=== PATIENT | female | born 1975 | race Caucasian/White ===

== ENCOUNTER 2018-02-07 05:47 | Observation (INO) | payer SELFPAY ==
[2018-01-31 14:56] LABS: BASOPHILS # (AUTO) 0.1 (0.0-0.1); BASOPHILS % 0.7 % (0.0-1.0); EOSINOPHILS # (AUTO) 0.2 (0.0-0.4); HEMATOCRIT 42.1 % (34.2-44.1); HEMOGLOBIN 13.8 g/dL (12.0-16.0); LYMPHOCYTES # (AUTO) 2.8 (1.0-3.2); LYMPHOCYTES % 34.4 % (18.0-39.1); MEAN CORPUSCULAR HEMOGLOBIN 30.4 pg (28-32); MEAN CORPUSCULAR HGB CONC 32.8 g/dL (31-35); MEAN CORPUSCULAR VOLUME 92.7 fL (81-99); MONOCYTES # (AUTO) 0.5 (0.2-0.8); MONOCYTES % 5.8 % (4.4-11.3); NEUTROPHILS # (AUTO) 4.6 (2.1-6.9); PLATELET COUNT 376 x10e3/uL (140-360); RED BLOOD COUNT 4.54 x10e6/uL (3.6-5.1); RED CELL DISTRIBUTION WIDTH 13.2 % (11.7-14.4)
[2018-01-31 15:10] LABS: ANION GAP 12.2 mmol/L (8-16); BLOOD UREA NITROGEN 10 mg/dL (7-26); BUN/CREATININE RATIO 11 (6-25); CALCIUM 9.7 mg/dL (8.4-10.2); CARBON DIOXIDE 28 mmol/L (22-29); CHLORIDE 106 mmol/L (98-107); CREATININE, SERUM 0.92 mg/dL (0.57-1.11); EST GLOMERULAR FILTRATION RATE > 60 ML/MIN (60-); GLUCOSE 105 mg/dL (74-118); POTASSIUM 4.2 mmol/L (3.5-5.1); SODIUM 142 mmol/L (136-145)
--- NOTE | 2018-01-31 15:10 | Diagnostic Imaging Report ---
PROCEDURE: Frontal and lateral views of the chest. COMPARISON: None. INDICATIONS: PREOPERATIVE CHEST XRAY FOR TUMMY TUCK SURGERY FINDINGS: Lines/tubes: None. Lungs: The lungs are well inflated and clear. There is no evidence of pneumonia or pulmonary edema. Pleura: There is no pleural effusion or pneumothorax. Heart and mediastinum: The heart and the mediastinum are normal. Bones: No acute bony abnormality. IMPRESSION: No acute cardiopulmonary disease. Dictated by: Jesus Up M.D. on 01/31/2018 at 15:10 Electronically approved by: Jesus Up M.D. on 01/31/2018 at 15:10
[~2018-02-07] VITALS: Ht 162.6 cm; Wt 108.0 kg
[~2018-02-07 05:47] MED LIST: SYNTHROID125 MCG PO
--- OUTSIDE RECORDS SUMMARY | 2018-02-07 05:49 | XMS REPORT ---
Author Author [facility] Address Unknown Phone Unavailable Care Team Providers Care Neurology Stroke Physician Name Role Phone LAURA ROMERO Unavailable Unavailable RUIZ JUAREZ Unavailable Unavailable Problems This patient has no known problems. Allergies, Adverse Reactions, Alerts This patient has no known allergies or adverse reactions. Medications This patient has no known medications. Results Test Description Test Time Test Comments Text Results Atomic Results Result Comments CHEST 2 VIEWS [place] [address] Patient Name: CHRISTINA MENDOZA MR #: [id number] : 1975 Age/Sex: 42/F Req #: [id number] [facility] Physician: Ordered by: LAURA ROMERO MD Report #: [id number] Location: OR Room/Bed: Procedure: [id number] DX/CHEST 2 VIEWS Exam Date: 01/31/18 Exam Time : 1450 REPORT STATUS: Signed PROCEDURE: Frontal and lateral views of the chest. COMPARISON: None. INDICATIONS: PREOPERATIVE CHEST XRAY FOR TUMMY TUCK SURGERY FINDINGS: Lines/tubes: None. Lungs: The lungs are well inflated and clear. There is no evidence of pneumonia or pulmonary edema. Pleura: There is no pleural effusion or pneumothorax. Heart and mediastinum: The heart and the mediastinum are normal. Bones: No acute bony abnormality. IMPRESSION: No acute cardiopulmonary disease. Dictated by: Ivy Danielle M.D. on 01/31/2018 at 15: 10 Electronically approved by: Ivy Danielle M.D. on 01/31/2018 at 15:10 Dictated By: IVY DANIELLE MD 1510 COPY TO: LAURA ROMERO MD US TRANSVAGINAL [place] [address] Patient Name: CHRISTINA GUZMAN MR #: [id number] : 1975 Age/Sex: 42/F Req #: [id number] [facility] Physician: Ordered by: RUIZ JUAREZ MD Report #: [id number] Location: Room/Bed: Procedure: [id number] US/US TRANSVAGINAL Exam Date: 10/01/17 Exam Time: 0849 REPORT STATUS: Signed PROCEDURE: TRANSVAGINAL ULTRASOUND COMPARISON: None. INDICATIONS: RT OVARIAN CYST TECHNIQUE: Grayscale transverse and sagittal transvaginal images were obtained of the pelvis. FINDINGS: UTERUS: Nonvisualized in keeping with hysterectomy. ENDOMETRIUM: Absence RIGHT OVARY: 8.1 x 4.3 x 7.6 cm. The right ovary contains 3 separate cystic structures, with thin cary, no septation or internal solid component, and with no internal echoes. Cysts measure 3.6 x 5.7 x 3.2 cm, 3.6 x 3.8 x 4 cm, and 1.9 x 1.1 x 2.6 cm. LEFT OVARY: The left ovary measures 4.7 x 4.4 x 4.2 cm. The left ovary contains 2 anechoic structures, one of which contains reticulated internal echoes, without internal vascularity and measures 3.1 x 2.8 x 3 cm. The smaller of the 2 lesions is anechoic without internal septation, mural nodularity, or solid component and measures 2.4 x 1.5 x 2 cm. There is trace free fluid within the pelvis. CONCLUSION: Bilateral ovarian cysts as above, one of which is minimally complex (3.1 cm left ovarian) likely reflective of a hemorrhagic component. Followup transvaginal pelvic ultrasound in 6-8 weeks is suggested to assess for interval stability or resolution. Trace nonspecific free pelvic fluid. Dictated by: Sania Rocha M.D. on at 9:29 Electronically approved by: Sania Rocha M.D. on 2016 at 9:29 Dictated By: SANIA ROCHA MD 8 Transcribed By: JESUS on 10/01/17928 COPY TO: RUIZ JUAREZ MD
[2018-02-07] MEDS ORDERED: FLUTICASONE INH (06:53)
[2018-02-07] MEDS ORDERED: AZELASTINE INH (06:53)
[2018-02-07] MEDS ORDERED: CEFAZOLIN SOD 1 GM VIAL ONE (07:07)
[2018-02-07] MEDS ORDERED: BUPIVACAINE 0.25% 30ML SDV INJ ONE ×3 (07:58→11:14)
[2018-02-07] MEDS ORDERED: EPINEPHRINE HCL INJ 1 MG/ML AMP ONE ×2 (07:58→09:12)
[2018-02-07] MEDS ORDERED: LIDOCAINE HCL 1% 30ML-PF VIAL ONE ×2 (07:58→09:12)
[2018-02-07] MEDS ORDERED: HYDROMORPHONE 1MG/1ML INJ ONE (14:25)
--- NOTE | 2018-02-07 14:41 | Operative Report ---
DATE OF PROCEDURE: February 07, 2018 PREOPERATIVE DIAGNOSIS: Intra-abdominal adhesions. POSTOPERATIVE DIAGNOSIS: Intra-abdominal adhesions. OPERATION PERFORMED: Extensive lysis of intra-abdominal adhesions. EDGE TRIMMING MACHINE OPERATOR: Dr. Mathis and Dr. Jarvis. ANESTHESIA: General. COMPLICATIONS: None. ESTIMATED BLOOD LOSS: Minimal. DESCRIPTION OF PROCEDURE: With the patient lying in bed in the supine position under good general endotracheal anesthesia, we were called into the operating room by Dr. Mathis because she was exploring the patient for removal of a large ovarian cyst, which preoperatively was thought to be benign clinically. However, upon opening the abdominal cavity, the patient was found to have significant abdominal adhesions where the colon was plastered down to the pelvis. The patient had undergone a previous hysterectomy in the past for benign disease. Obviously, everything had gotten pretty stuck in the area of the pelvis afterwards. She needed some help freeing up the bowel. So we were called into the operating room with the patient already having had the incision done. Exploration at this point revealed that the sigmoid colon and transverse colon were plastered to the lower abdomen and down in the pelvis covering up the ovarian mass. The ovarian mass was also stuck anteriorly to the bladder. At this point, some omental adhesions were slowly and carefully taken down and . We were able then to identify the sigmoid colon. The sigmoid colon was then laterally from the white line and brought medially so that we could identify exactly where the colon went. The colon was then carefully from the ovarian mass all the way down into the rectosigmoid junction until it was totally freed up from the pelvic mass. Once this was done, all the bowel had been completely . Hemostasis was ascertained. The ovarian mass was then from the anterior adhesions to the bladder and freed up. At this point, the case was turned over to Dr. Mathis who proceeded to ligate the 2 pedicles and the ovarian mass was then sent for pathological examination. The whole area was irrigated. Hemostasis was ascertained. The case was then turned back to Dr. Mathis and Dr. Jarvis for closure of the abdominal wall. Job#: [id number] [place]
[2018-02-07] MEDS ORDERED: DEXTROSE 5%/LACTATED RINGERS 1,000 ML IV SCH (15:00)
[2018-02-07] MEDS ORDERED: HYDROMORPHONE 0.2MG/ML-SOD CHL 30ML PCA SYRINGE IV ONE (15:12)
[2018-02-07] MEDS ORDERED: ONDANSETRON HCL INJ 2 MG/ML VIAL ONE ×2 (15:17→17:14)
[2018-02-07] MEDS ORDERED: METOCLOPRAMIDE HCL 10 MG/2ML VIAL ONE (15:17)
[2018-02-07] MEDS ORDERED: HYDROMORPHONE 0.2MG/ML-SOD CHL 30ML PCA SYRINGE IV PRN (16:15)
[2018-02-07 16:30] VITALS: BP 118/58
[2018-02-07 16:34] VITALS: BP 118/58
[2018-02-07 17:12] VITALS: BP 118/58
[2018-02-07] MEDS ORDERED: NEOSTIGMINE 5 MG/5ML SYR ONE (17:14)
[2018-02-07] MEDS ORDERED: LIDOCAINE HCL 2% LOCAL INJ 5 ML SDV VIAL INJ ONE (17:14)
[2018-02-07] MEDS ORDERED: PROPOFOL IV EMULSION 10 MG/ML 20 ML VIAL ONE (17:14)
[2018-02-07] MEDS ORDERED: ACETAMINOPHEN 1000 MG/100 ML IV ONE (17:14)
[2018-02-07] MEDS ORDERED: GLYCOPYRROLATE INJ 1MG/ 5 ML SYR ONE (17:14)
[2018-02-07] MEDS ORDERED: DEXAMETHASONE SOD PHOS INJ 4 MG/ML VIAL ONE (17:14)
[2018-02-07] MEDS ORDERED: SEVOFLURANE INHAL SOLN 250 ML PEN BTL ONE (17:14)
[2018-02-07] MEDS ORDERED: ROCURONIUM BROMIDE 10 MG/ML 5ML VIAL ONE (17:14)
[2018-02-07] MEDS: DEXTROSE 5%/LACTATED RINGERS 1,000 ML IV SCH (17:30)
[2018-02-07] MEDS ORDERED: MIDAZOLAM HCL 2 MG/2 ML VIAL ONE (18:26)
[2018-02-07] MEDS ORDERED: FENTANYL CITRATE/PF 100MCG/2 ML INJ ONE (18:26)
[2018-02-07] MEDS ORDERED: MORPHINE SULFATE INJ 10 MG/ML ONE (18:26)
[2018-02-07 20:00] VITALS: BP 134/83
[2018-02-07 23:23] VITALS: BP 134/83
[2018-02-08] VITALS (7 sets, daily range): BP systolic 115–143; BP diastolic 59–80
[2018-02-08] MEDS: DEXTROSE 5%/LACTATED RINGERS 1,000 ML IV SCH ×2 (00:15→05:05)
[2018-02-08 07:23] LABS: BASOPHILS % 0.2 % (0.0-1.0); EOSINOPHILS % 0.2 % (0.0-6.0); HEMATOCRIT 33.3 % (34.2-44.1); HEMOGLOBIN 10.9 g/dL (12.0-16.0); LYMPHOCYTES # (AUTO) 2.3 (1.0-3.2); LYMPHOCYTES % 19.6 % (18.0-39.1); MEAN CORPUSCULAR HEMOGLOBIN 30.5 pg (28-32); MEAN CORPUSCULAR HGB CONC 32.7 g/dL (31-35); MEAN CORPUSCULAR VOLUME 93.3 fL (81-99); MONOCYTES # (AUTO) 1.2 (0.2-0.8); MONOCYTES % 10.6 % (4.4-11.3); NEUTROPHILS % 69.1 % (38.7-80.0); PLATELET COUNT 282 x10e3/uL (140-360); RED BLOOD COUNT 3.57 x10e6/uL (3.6-5.1); RED CELL DISTRIBUTION WIDTH 13.2 % (11.7-14.4)
[2018-02-08 07:52] LABS: ALANINE AMINOTRANSFERASE 23 IU/L (0-55); ALBUMIN 3.1 g/dL (3.5-5.0); ALBUMIN/GLOBULIN RATIO 1.1 (0.8-2.0); ALKALINE PHOSPHATASE 46 IU/L (40-150); ANION GAP 10.1 mmol/L (8-16); BLOOD UREA NITROGEN 10 mg/dL (7-26); BUN/CREATININE RATIO 13 (6-25); CALCIUM 8.6 mg/dL (8.4-10.2); CARBON DIOXIDE 29 mmol/L (22-29); CHLORIDE 103 mmol/L (98-107); CREATININE, SERUM 0.75 mg/dL (0.57-1.11); EST GLOMERULAR FILTRATION RATE > 60 ML/MIN (60-); GLUCOSE 123 mg/dL (74-118); POTASSIUM 4.1 mmol/L (3.5-5.1); SODIUM 138 mmol/L (136-145)
[2018-02-08] MEDS: ONDANSETRON HCL INJ 2 MG/ML VIAL IV PRN (08:29)
[2018-02-08] MEDS ORDERED: IBUPROFEN 200 MG TAB PO PRN (09:30)
[2018-02-08] MEDS ORDERED: IBUPROFEN 400 MG TAB PO PRN (09:45)
[2018-02-08] MEDS: HYDROCODONE/APAP 5MG-325MG TAB PO PRN (12:46)
[2018-02-08] MEDS ORDERED: DIPHENHYDRAMINE HCL 25 MG CAP PO ONE (13:00)
[2018-02-08] MEDS ORDERED: CALCIUM CARBONATE 500 MG CHEWABLE TABS PO PRN (15:15)
[2018-02-08] MEDS ORDERED: KETOROLAC TROMETHAMINE 10 MG TAB PO PRN (15:15)
[2018-02-08] MEDS ORDERED: KETOROLAC TROMETHAMINE 30 MG/ML VIAL IV PRN (16:00)
[2018-02-08] MEDS: DOCUSATE SODIUM 100 MG CAP PO SCH (16:11)
--- NOTE | 2018-02-08 16:36 | Operative Report ---
DATE OF PROCEDURE: February 07, 2018 PREOPERATIVE DIAGNOSIS: A 43-year-old white female with severe chronic pelvic pain and bilateral ovarian masses. POSTOPERATIVE DIAGNOSES 1. A 43-year-old white female with severe chronic pelvic pain and bilateral ovarian masses. 2. Extensive pelvic and abdominal adhesions. SURGICAL PROCEDURES PERFORMED 1. Examination under anesthesia. 2. Exploratory laparotomy. 3. Extensive adhesiolysis. 4. Removal of pelvic mass. 5. Bilateral salpingo-oophorectomy. INTRAOPERATIVE CONSULT: Surgeon, Dr. Jone Contreras for the extensive pelvic adhesions. DRILLING MACHINE OPERATOR: Dr. Matheus MD FINDINGS: At the time of surgery, the patient is having abdominoplasty and liposuction at the same time with Dr. Magallanes. Dr. Magallanes started the surgical procedure, the incision and lifted abdominal skin and the fat. We started the surgery with opening the fascia. There are extensive adhesions between the omentum and the anterior abdominal wall. When we those, there were extensive adhesions between the pelvic sidewall, bowel and the bladder. Difficult to see the mass because of the adhesions covering it especially with the bowel. Therefore, obtained the intraoperative consult with Dr. Jone Contreras, general surgeon. He helped with the adhesiolysis. After the adhesiolysis, could identify the infundibulopelvic ligament and removed the mass, and sent to pathology. ESTIMATED BLOOD LOSS: About 150-200 mL. URINE: Clear. COMPLICATIONS: None. PROCEDURE IN DETAIL: The patient was brought to the operating room and put in the supine position, and general anesthesia was given without any problems. Then exam under anesthesia performed. Could not feel anything abnormal. Then she was prepped and draped in the routine fashion for Dr. Magallanes, the plastic surgeon for abdominoplasty. He started the surgery and did the lifting of the abdominal wall skin and the fat and the subcutaneous tissue. Then I started the surgery after that. I made a vertical incision in the fascia, and entered the abdominal cavity without any problems. There were extensive adhesions between the omentum and the anterior abdominal wall. They were between the clamps and cut, and tied with free tie using 1-0 Vicryl. Then after the abdominal adhesions, could get into the pelvis. Put in the O'Yosi-O'Membreno retractor for better exposure. I tried to explore the pelvis, but there were extensive adhesions between the bowel and omentum, and both pelvic sidewalls, and to the top of the bladder. More adhesions were close to the bowel. The bowel was wrapping around the mass. Therefore, called in the general surgeon, Dr. Contreras, and he came in and he dissected the large bowel away from the mass. The mass was more attached to the bowel and not much to the bowel, and not much to the bladder. We were not anywhere close to the bladder. After Dr. Contreras the adhesions from the large bowel and the pelvic sidewalls, identified the infundibulopelvic ligaments, clamped them close to the ovarian mass. The mass was very irregular, about 10 cm size, multiloculated. Looks benign. There was no free fluid in the pelvis. Both left and right ovaries were stuck together. Could not differentiate. After the infundibulopelvic ligaments from the mass, the mass was dissected out and removed, and sent for pathology. The pelvis looks normal. Checked for hemostasis. Hemostasis appears satisfactory. Irrigated the pelvis, and again checked for hemostasis. It was satisfactory. Then removed the O'Yosi-O'Membreno retractor and all the laps. Closed the fascia with continuous stitches using Prolene. The estimated blood loss about 150-200 mL. Urine clear in the Muñoz bag. The rest of the surgery, Dr. Magallanes to cover for abdominoplasty and liposuction. Instrument and swab counts were correct. The patient is still in surgery. Job#: [id number] [place]
[2018-02-08] MEDS: CEFTRIAXONE SOD 1 GM VIAL IV SCH (16:37)
[2018-02-08] MEDS ORDERED: MORPHINE SULFATE 4 MG/ML SYR IV PRN (19:45)
[2018-02-08] MEDS ORDERED: MORPHINE SULFATE 2 MG/ML SYR IV PRN (20:00)
[2018-02-08] MEDS: ACETAMINOPHEN 325 MG TAB PO PRN (22:11)
[2018-02-09] VITALS: BP 114/62
[2018-02-09] MEDS: HYDROCODONE/APAP 5MG-325MG TAB PO PRN ×3 (00:01→22:20)
[2018-02-09 00:02] VITALS: BP 143/74
[2018-02-09] MEDS ORDERED: BISACODYL 10 MG SUPP PR ONE ×2 (00:45→06:00)
[2018-02-09 04:00] VITALS: BP 141/76
[2018-02-09] MEDS: ONDANSETRON HCL INJ 2 MG/ML VIAL IV PRN ×3 (05:48→22:20)
[2018-02-09] MEDS: LEVOTHYROXINE SODIUM 125 MCG TAB PO SCH (06:00)
[2018-02-09] MEDS: ACETAMINOPHEN 325 MG TAB PO PRN ×3 (07:53→22:15)
[2018-02-09] MEDS: PANTOPRAZOLE SOD 40 MG TABEC PO SCH (09:00)
[2018-02-09] MEDS: DOCUSATE SODIUM 100 MG CAP PO SCH ×2 (09:00→16:39)
[2018-02-09 09:15] VITALS: BP 132/73
[2018-02-09 12:48] LABS: BASOPHILS % 0.4 % (0.0-1.0); EOSINOPHILS # (AUTO) 0.2 (0.0-0.4); EOSINOPHILS % 1.8 % (0.0-6.0); LYMPHOCYTES # (AUTO) 2.1 (1.0-3.2); LYMPHOCYTES % 22.1 % (18.0-39.1); MEAN CORPUSCULAR HEMOGLOBIN 30.7 pg (28-32); MEAN CORPUSCULAR HGB CONC 32.4 g/dL (31-35); MONOCYTES # (AUTO) 0.7 (0.2-0.8); MONOCYTES % 7.8 % (4.4-11.3); NEUTROPHILS # (AUTO) 6.4 (2.1-6.9); NEUTROPHILS % 67.6 % (38.7-80.0); PLATELET COUNT 292 x10e3/uL (140-360); RED BLOOD COUNT 3.58 x10e6/uL (3.6-5.1); RED CELL DISTRIBUTION WIDTH 13.2 % (11.7-14.4)
[2018-02-09 13:27] VITALS: BP 119/68
[2018-02-09] MEDS: CEFTRIAXONE SOD 1 GM VIAL IV SCH (16:30)
[2018-02-09] MEDS ORDERED: IOTHALAMATE MEGLUMINE 17.20% 250 ML BTL ONE (17:55)
[2018-02-09] MEDS ORDERED: IOPAMIDOL 300MG/ML 100 ML INFUS..BTL IV ONE (19:24)
--- NOTE | 2018-02-09 19:25 | Diagnostic Imaging Report ---
PROCEDURE:CYSTOGRAM 3+VIEWS TECHNIQUE:Approximately 250 cc of Cysto-Conray were instilled in retrograde fashion into the bladder via the patient's Muñoz catheter. Multiple fluoroscopic images in AP, bilateral oblique, and decubitus positions were obtained. The bladder was empty and AP post void image was obtained. INDICATION:Hematuria. Post abdominal surgery COMPARISON:None. FINDINGS: Normal filling of the bladder, without evidence of contrast extravasation or reflux. No ureterocele is identified.. Normal post void image, without significant residual. CONCLUSION: Unremarkable exam, without evidence of contrast extravasation/leak. Maxi Sanchez M.D. Dictated by: Maxi Sanchez M.D. on 02/09/2018 at 19:26 Electronically approved by: Maxi Sanchez M.D. on 02/09/2018 at 19:26
[2018-02-09 21:00] VITALS: BP 150/76
[2018-02-09] MEDS ORDERED: DIPHENHYDRAMINE HCL 25 MG CAP PO PRN (21:00)
[2018-02-10] VITALS: BP 117/59
[2018-02-10 00:26] VITALS: BP 150/76
[2018-02-10] MEDS: ACETAMINOPHEN 325 MG TAB PO PRN (03:21)
[2018-02-10 04:00] VITALS: BP 104/59
[2018-02-10] MEDS: LEVOTHYROXINE SODIUM 125 MCG TAB PO SCH (05:49)
--- NOTE | 2018-02-10 07:09 | Diagnostic Imaging Report ---
PROCEDURE: INTRAVENOUS PYELOGRAM (IVP) COMPARISON: Cystogram 02/09/2018. INDICATIONS: STATUS POST ABDOMINAL SURGERY, BLOOD IN URINE TECHNIQUE: A assistant store manager operations film was obtained demonstrating a nonobstructed bowel gas pattern with surgical drainage catheters projecting over either side of the vertebral column. There are no masses or abnormal calcifications. Multiple pelvic phleboliths. Minimal marginal osteophytes are present within the lumbar spine. After intravenous administration of 100 cc of omnipaque 300, multiple frontal and oblique images of the abdomen and pelvis were obtained with and without compression. Post void images were also obtained. FINDINGS: KIDNEYS: Renal position, contours, and sizes are normal. There is prompt bilateral excretion of contrast. The calices and renal pelves are normal in appearance bilaterally without evidence of dilatation or filling defect. URETERS: Both ureters are nearly fully visualized in their course to the bladder with normal course and caliber. No evidence of irregularity or filling defect. BLADDER: Normal. Muñoz catheter in place. CONCLUSION: Normal IVP. Dictated by: Amrik Salazar M.D. on 02/10/2018 at 7:09 Electronically approved by: Amrik Salazar M.D. on 02/10/2018 at 7:09
[2018-02-10 08:30] VITALS: BP 124/71
[2018-02-10] MEDS: PANTOPRAZOLE SOD 40 MG TABEC PO SCH (08:48)
[2018-02-10] MEDS: DOCUSATE SODIUM 100 MG CAP PO SCH (08:48)
[2018-02-10 09:13] VITALS: BP 124/71
[2018-02-10 13:06] VITALS: BP 118/69
--- NOTE | 2018-02-14 05:58 | Operative Report ---
DATE OF PROCEDURE: February 07, 2018 PREOPERATIVE DIAGNOSES: 1. Excess lower abdominal skin and diastasis recti. 2. 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 POSTOPERATIVE DIAGNOSES: 1. Excess lower abdominal skin and diastasis recti. 2. 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 PROCEDURES PERFORMED: 1. Abdominoplasty. 2. Suction-assisted lipectomy of bilateral flanks and bilateral inner thighs, total tumescent fluid injected was 1900 mL, total aspirate out was 1000 mL. ANESTHESIA: General endotracheal. INDICATION FOR SURGERY: This is a 42-year-old female who is having bilateral oophorectomy performed by Dr. Mathis, and who complains of excess lower abdominal skin and diastasis recti as well as lipodystrophy of bilateral flanks and bilateral inner thighs. Patient desires concomitant abdominoplasty and suction-assisted lipectomy of bilateral flanks and bilateral inner thighs to be performed by Dr. Gamboa. Risks, alternatives, and possible complications of the abdominoplasty and liposuction were explained to the patient. These include, but are not limited to bleeding, infection, scarring, umbilical or skin flap necrosis, seroma formation, wound dehiscence, pulmonary embolism, deep venous thrombosis, skin irregularity, lack of result, recurrence of lipodystrophy, bruising, swelling, asymmetry, unsatisfactory aesthetic result, and possible need for further surgery. The patient had an opportunity to ask questions and have her questions answered and agreed to proceed with the proposed procedure. PROCEDURE IN DETAIL: The patient was marked in the preoperative holding area by both Dr. Gamboa and Dr. Mathis. She was then taken to the operating room and placed supine on the operating table. After adequate general anesthesia, a Muñoz was placed and the patient's abdomen and bilateral flanks were prepped and draped in the usual surgical fashion. Dr. Gamboa then proceeded to elevate the lower abdominal skin in order to expose the lower abdominal fascia for Dr. Mathis's bilateral oophorectomy. Dr. Gamboa made an incision in the suprapubic area where previously marked with #10 blade. Tissue was dissected down to abdominal wall fascia with the help of the Bovie. The lower abdominal skin flap was then elevated. Once the umbilicus was reached, an incision was made around the umbilicus with #15 blade. The umbilical stalk was carefully dissected ensuring that its blood supply remains intact. The abdominal wall fascia was then elevated up to the area of the xiphoid. At this point, Dr. Mathis and Dr. Jarvis made vertical incision from below the umbilicus to the pubic area in the midline and proceeded to perform the bilateral oophorectomy. After completion of their portion of the procedure, and closure of the abdominal wall by them, the abdominal wall fascia was plicated by Dr. Gamboa with a looped #0 nylon suture from the xiphoid to the umbilicus and a second suture from the umbilicus to the pubic area. The abdominal wall fascia was then injected with 30 mL of 0.5% Marcaine plain. Tumescent fluid was then injected in each flank, approximately 500 mL of tumescent and also in each medial thigh area through a separate groin incision. Approximately 450 mL of tumescent were injected in each inner thigh area. After adequate time was given for the tumescent to act, suction-assisted lipectomy was undertaken with #3 mm cannula, 350 mL of aspirate were removed from each flank area and 150 mL of aspirate were removed form each medial thigh area. The liposuction incisions in the patient's groin area were closed with a single stitch of 5-0 chromic. The patient was then placed in a flexed position and the lower abdominal skin flap was advanced. The area of new umbilicus was marked and an inverted U-incision was made with #15 blade. The umbilicus was then sutured in its new location with interrupted 4-0 Vicryl sutures and a running subcuticular 4-0 PDS suture. The excess skin was then resected with the help of #10 blade and with the Bovie. Two #10 flat JPs were placed, one on each side of the abdomen exiting in the pubic area, and sutured in place with 2-0 nylon suture. The lower abdominal incision was then closed with interrupted 2-0 Vicryl sutures in Endy's fascia, INSORB stapler in subcutaneous tissue, and a running subcuticular 3-0 PDS suture. At the end of the case, the patient's umbilicus and lower abdominal skin flap appeared viable. All incisions were covered with Xeroform, ABD pads, and a surgical girdle was placed on the patient. The Muñoz was removed before the end of the case. There were no immediate complications. The needle and instrument count was correct at the end of the case, and the patient was transferred extubated to the recovery room. Job#: [id number] DR LOCKHART
--- NOTE | 2018-02-14 13:12 | Consultation ---
DATE OF CONSULTATION: February 09, 2018 CONSULTATION CALLED BY: Dr. Mathis. CHIEF UROLOGIC COMPLAINT/REASON FOR CONSULTATION: Gross hematuria. HISTORY OF PRESENT ILLNESS: Ms. De Los Santos is a very pleasant 42-year-old female who had undergone a hysterectomy with large fibroids with lysis of adhesions by Dr. Contreras as well as an abdominoplasty by Dr. Gamboa. A urologic consultation was requested in the immediate postop period for gross hematuria. PAST MEDICAL HISTORY: As above. MEDICATIONS: Please see MAR. ALLERGIES: CODEINE. SOCIAL HISTORY: Denied smoking or drinking. FAMILY HISTORY: Denied urologic stones or malignancies. REVIEW OF SYSTEMS: Noncontributory other than problems mentioned above for 12 organ systems. PHYSICAL EXAMINATION: GENERAL: A middle-aged female in no acute distress. VITAL SIGNS: Currently she is afebrile with stable vital signs. HEENT: Sclerae anicteric. NECK: Supple. BACK: Without costovertebral angle tenderness bilaterally. ABDOMEN: Soft. It is nontender. It is nondistended. No palpable mass. No palpable hernias. No palpable inguinal lymphadenopathy. GENITOURINARY: Normal female external genitalia. EXTREMITIES: Without edema. NEUROLOGIC: Moves extremities. PSYCHIATRIC: Alert. Mood appropriate. SKIN: Intact. Normal color. PERTINENT LABORATORY DATA: Hemoglobin 13, hematocrit 42, platelet count 376,000, white cell count 8000. IMPRESSION: 1. Gross hematuria. 2. Question bladder trauma. PLAN: Would obtain an intravenous pyelogram as well as a cystogram to ensure there is no injury to the urinary tract which would need to be repaired. Urinalysis has been ordered, will defer to the ordering physician. Thank you for allowing me to participate in the care of your patient. We will be happy to follow along with you. Job#: [id number] EV cc:MD LOYD SUAREZ MD ELENA G. GEPPERT, MD
== END 2018-02-10 14:20 | disposition home or self-care (01) ==
LOC: OR 05:47 → MED/SURG 11:21
PROVIDERS: ADMIT Specialist; ATTEND Specialist
DX: D27.1 Benign neoplasm of left ovary (principal); D27.0 Benign neoplasm of right ovary; R10.2 Pelvic and perineal pain; E88.1 Lipodystrophy, not elsewhere classified; Q79.59 Other congenital malformations of abdominal wall; E03.9 Hypothyroidism, unspecified; E78.5 Hyperlipidemia, unspecified; Z87.891 Personal history of nicotine dependence; R31.0 Gross hematuria; N70.11 Chronic salpingitis
CPT/HCPCS: 15877; 15879; 17999; 36415 ×3; 58720; 58999; 71046; 74400; 74430; 80048; 80053; 84702; 85025 ×3; 87086 ×2; 88307; 88342; 93005; G0378 ×4; J0171; J0690; J0696 ×2; J1100; J1170; J1885; J2001 ×2; J2250; J2270; J2405 ×3; J2765; J7120 ×2; Q9958; Q9967; 88304